=== PATIENT | male | born 1985 | race Two or more races ===

== ENCOUNTER 2016-04-25 01:13 | Emergency (ER) | payer SELFPAY ==
[~2016-04-25] VITALS: Ht 188 cm; Wt 147.4 kg
[2016-04-25 01:21] VITALS: BP 155/87
== END 2016-04-25 04:58 | disposition left against medical advice (07) ==
LOC: ER 01:15
DX: K08.89 Other specified disorders of teeth and supporting structures (principal); Z53.21 Procedure and treatment not carried out due to patient leaving prior to being seen by health care provider

== ENCOUNTER 2018-02-16 04:18 | Emergency (ER) | payer MEDICAID ==
[~2018-02-16] VITALS: Ht 188 cm; Wt 149.7 kg
[2018-02-16 04:40] VITALS: BP 147/95
== END 2018-02-16 05:50 | disposition home or self-care (01) ==
LOC: ER 04:21
DX: J06.9 Acute upper respiratory infection, unspecified (principal); J02.9 Acute pharyngitis, unspecified; F17.210 Nicotine dependence, cigarettes, uncomplicated; R51 Headache

== ENCOUNTER 2018-03-04 22:56 | Emergency (ER) | payer MEDICAID ==
[~2018-03-04] VITALS: Ht 188 cm; Wt 150.6 kg
[2018-03-04 23:03] VITALS: BP 140/92
[2018-03-04 23:23] LABS: Basophils # (auto) 0.1 uL; Basophils % (auto) 1.3 % (0.0-2.0); Eosinophils # (auto) 0.4 uL; Eosinophils % (auto) 3.7 % (0.0-7.0); Hematocrit 50.2 % (41.0-53.0); Hemoglobin 16.9 g/dL (13.5-17.5); Lymphocytes # (auto) 2.7 uL; Lymphocytes % (auto) 26.1 % (10.0-50.0); Mean Corpuscular Hemoglobin 31.2 pg (28.0-32.0); Mean Corpuscular Hgb Conc. 33.6 g/dL (32.0-36.0); Mean Corpuscular Volume 92.8 fL (80.0-100.0); Monocytes % (auto) 9.5 % (0.0-12.0); Neutrophils % (auto) 59.4 % (37.0-80.0); Nucleated Red Blood Cells % 0.1 %; Platelet Count (auto) 279 10^3/uL (140-450); Red Blood Cells 5.41 10^6/uL (4.5-5.90); Red Cell Distribution Width 13.4 % (11.8-14.3); White Blood Cell 10.2 10^3/uL (4.4-10.8)
[2018-03-04 23:35] LABS: Urine Bacteria MOD /hpf (None Seen); Urine Blood Negative /uL (Negative); Urine Specific Gravity 1.016 (1.001-1.035); Urine WBC 23 /hpf (0 - 3)
[2018-03-04 23:38] LABS: Albumin 3.8 g/dL (3.4-5.0); Calcium 8.7 mg/dL (8.5-10.1); Potassium 3.9 mmol/L (3.5-5.1)
[2018-03-04 23:40] LABS: Bilirubin, Total 0.5 mg/dL (0.2-1.0); Total Protein 7.5 g/dL (6.4-8.2)
== END 2018-03-05 01:00 | disposition left against medical advice (07) ==
LOC: ER 23:07
DX: N50.819 Testicular pain, unspecified (principal); Z53.21 Procedure and treatment not carried out due to patient leaving prior to being seen by health care provider
CPT/HCPCS: 36415; 74176; 76870; 80053; 81001; 82150; 83690; 85025